=== PATIENT | female | born 1990 | race Asian ===

== ENCOUNTER 2017-10-24 23:21 | Observation (INO) | payer SELFPAY ==
[~2017-10-24] VITALS: Ht 162.6 cm; Wt 73.0 kg
== END 2017-10-25 01:20 | disposition home or self-care (01) ==
LOC: L&D 23:21
PROVIDERS: ADMIT Obstetrics & Gynecology; ATTEND Obstetrics & Gynecology
DX: O36.8190 Decreased fetal movements, unspecified trimester, not applicable or unspecified (principal); Z3A.00 Weeks of gestation of pregnancy not specified
CPT/HCPCS: 99281; G0378

== ENCOUNTER 2018-01-08 23:36 | Observation (INO) | payer SELFPAY ==
[~2018-01-08] VITALS: Ht 162.6 cm; Wt 74.4 kg
[2018-01-09] MEDS ORDERED: PNV1TABL76 PO (01:10)
== END 2018-01-09 01:30 | disposition home or self-care (01) ==
LOC: L&D 23:36
PROVIDERS: ADMIT Obstetrics & Gynecology; ATTEND Obstetrics & Gynecology
DX: O62.9 Abnormality of forces of labor, unspecified (principal); O24.419 Gestational diabetes mellitus in pregnancy, unspecified control; Z3A.39 39 weeks gestation of pregnancy
CPT/HCPCS: 82962; 99281; G0378

== ENCOUNTER 2018-01-12 21:40 | Observation (INO) | payer SELFPAY ==
[~2018-01-12 21:40] MED LIST: PNV1TABL76 PO
== END 2018-01-13 | disposition home or self-care (01) ==
LOC: L&D 21:40
PROVIDERS: ADMIT Specialist; ATTEND Specialist
DX: O36.8130 Decreased fetal movements, third trimester, not applicable or unspecified (principal); O62.9 Abnormality of forces of labor, unspecified; O48.0 Post-term pregnancy; Z3A.40 40 weeks gestation of pregnancy
CPT/HCPCS: G0378 ×2

== ENCOUNTER 2018-01-13 06:18 | Inpatient (IN) | payer SELFPAY ==
[~2018-01-13] VITALS: Ht 162.6 cm; Wt 74.8 kg
[2018-01-13] MEDS ORDERED: DEXT 5%/LR + PITOCIN 20UNITS/L 1,000 ML IV SCH (06:58)
[2018-01-13] MEDS ORDERED: LIDOCAINE HCL 1% 20ML VIAL (Pyxis) INJ INFIL SCH (07:00)
[2018-01-13] MEDS ORDERED: METHYLERGONOVINE MALEATE 0.2 MG/ML IM PRN (07:00)
[2018-01-13] MEDS ORDERED: BUTORPHANOL TARTRATE 2 MG/ML VIAL IV PRN (07:00)
[2018-01-13] MEDS ORDERED: CARBOPROST TROMETHAMINE 250 MCG/ML AMPUL IM PRN (07:00)
[2018-01-13] MEDS ORDERED: NALOXONE HCL 0.4 MG/ML 1ML VIAL IM PRN (07:00)
[2018-01-13] MEDS: LACTATED RINGERS 1,000 ML IV SCH ×2 (08:21→13:44)
[2018-01-13] MEDS: MISOPROSTOL 100MCG TABLET VG PRN ×3 (08:48→18:29)
[2018-01-13 09:08] LABS: BASOPHILS % 0.3 % (0.0-2.0); EOSINOPHILS % 0.8 % (0.0-5.0); HEMATOCRIT. 38.6 % (36.0-48.0); HEMOGLOBIN. 12.9 g/dL (12.0-16.0); LYMPHOCYTES % 23.9 % (20.0-50.0); MEAN CORPUSCULAR HEMOGLOBIN 28.4 pg (28.0-32.0); MEAN PLATELET VOLUME 9.8 fl (7.4-10.4); MONOCYTES % 7.2 % (2.0-8.0); NEUTROPHILS % 67.8 % (40.0-76.0); PLATELET 212 x1000/uL (130-400); RED BLOOD CELL COUNT 4.54 mill/uL (4.2-5.4); RED CELL DISTRIBUTION WIDTH 15.6 % (11.6-14.6)
[2018-01-13 09:13] LABS: INR 0.9; PROTHROMBIN TIME 9.4 sec (9.1-11.1)
[2018-01-13 12:59] LABS: HEPATITIS B SURFACE ANTIGEN NEGATIVE
[2018-01-13 14:15] LABS: CLARITY URINE CLEAR (CLEAR); COLOR URINE YELLOW (YELLOW); KETONES URINE NEGATIVE (NEGATIVE); LEUKOCYTE ESTERASE URINE NEGATIVE (NEGATIVE); NITRITE URINE NEGATIVE (NEGATIVE); OCCULT BLOOD URINE NEGATIVE (NEGATIVE); PROTEIN URINE NEGATIVE (NEGATIVE); SPECIFIC GRAVITY URINE 1.016 (1.005-1.030); UROBILINOGEN URINE 0.2 E.U./dL (0.2-1.0)
[2018-01-13 14:19] LABS: RUBELLA IGG > 500.0 IU/mL (4.99-10)
[2018-01-13 14:46] LABS: *AMPHETAMINES SCREEN URINE NEGATIVE (NEGATIVE); *BARBITURATES SCREEN URINE NEGATIVE (NEGATIVE); *BENZODIAZEPINES SCREEN URINE NEGATIVE (NEGATIVE)
[2018-01-13 14:47] LABS: *COCAINE SCREEN URINE NEGATIVE (NEGATIVE); CANNABINOID URINE SCREEN NEGATIVE (NEGATIVE); METHADONE URINE SCREEN NEGATIVE (NEGATIVE); OPIATES URINE SCREEN NEGATIVE (NEGATIVE); PHENCYCLIDINE URINE SCREEN NEGATIVE (NEGATIVE)
[2018-01-14] MEDS: LACTATED RINGERS 1,000 ML IV SCH ×5 (02:05→22:13)
[2018-01-14] MEDS ORDERED: BUPIVACAINE HCL/PF 0.25% (2.5MG/ML) 10ML ONE (02:19)
[2018-01-14] MEDS ORDERED: BUPIVACAINE HCL/NS/PF EPIDURAL 100 ML EP ONE ×2 (02:19→19:19)
[2018-01-14] MEDS ORDERED: FENTANYL CITRATE/PF 50MCG/ML 2ML VIAL ONE ×3 (02:19→19:19)
[2018-01-14] MEDS ORDERED: BUPIVACAINE HCL/NS/PF EPIDURAL 100 ML EP SCH (03:00)
[2018-01-14] MEDS ORDERED: LIDOCAINE HCL/PF 2% 20MG/ML 5 ML/VIAL ONE ×3 (19:20→22:58)
[2018-01-14] MEDS ORDERED: SODIUM CHLORIDE 0.9% 10ML VIAL ONE ×2 (22:01→23:20)
[2018-01-14] MEDS ORDERED: ACETAMINOPHEN 325MG TABLET PO NR (22:09)
[2018-01-14] MEDS ORDERED: BUTORPHANOL TARTRATE 2 MG/ML VIAL IV PRN (22:15)
[2018-01-14] MEDS ORDERED: MIDAZOLAM HCL 2 MG/2 ML VIAL ONE (22:58)
[2018-01-14] MEDS ORDERED: KETAMINE HCL 50 MG/ML 10ML ONE (22:59)
[2018-01-14] MEDS ORDERED: OXYTOCIN 10 UNITS/ML 1ML ONE ×2 (23:09→23:53)
[2018-01-14] MEDS ORDERED: MORPHINE SULFATE/PF 1MG/ML 10ML AMP ONE (23:10)
[2018-01-14] MEDS ORDERED: ONDANSETRON HCL 4MG/2ML VIAL ONE (23:52)
[2018-01-14] MEDS ORDERED: KETOROLAC 60MG/2ML VIAL IM ONE (23:59)
[2018-01-15] VITALS (7 sets, daily range): BP systolic 99–122; BP diastolic 59–80
[2018-01-15] MEDS ORDERED: CEFAZOLIN 2000MG PREMIX 50 ML IV ONE (00:07)
[2018-01-15] MEDS ORDERED: DEXT 5%/LR + PITOCIN 20UNITS/L 1,000 ML IV SCH (00:18)
[2018-01-15] MEDS ORDERED: HEMORRHOIDAL SUPP PR PRN (00:30)
[2018-01-15] MEDS ORDERED: ONDANSETRON HCL 4MG/2ML VIAL IV PRN (00:30)
[2018-01-15] MEDS ORDERED: HYDROMORPHONE HCL/PF 2MG/ML CPJ IM PRN (00:30)
[2018-01-15] MEDS ORDERED: LANOLIN OINT 0.25 GM TUBE TOP PRN (00:30)
[2018-01-15] MEDS ORDERED: NALOXONE HCL 0.4 MG/ML 1ML VIAL IV PRN (00:30)
[2018-01-15] MEDS ORDERED: HYDROCODONE/ACETAMINOPHEN 5/325MG TABLET PO PRN (00:30)
[2018-01-15] MEDS ORDERED: DIPHENHYDRAMINE 50MG/ML VIAL IV PRN (00:30)
[2018-01-15] MEDS ORDERED: ACETAMINOPHEN 325MG TABLET PO PRN (00:30)
[2018-01-15] MEDS ORDERED: DIPHENHYDRAMINE 25MG CAPSULE PO PRN (00:30)
[2018-01-15] MEDS ORDERED: BUTORPHANOL TARTRATE 2 MG/ML VIAL IV PRN (00:30)
[2018-01-15 00:58] LABS: CLARITY URINE TURBID (CLEAR); KETONES URINE 4+ (NEGATIVE); LEUKOCYTE ESTERASE URINE 2+ (NEGATIVE); NITRITE URINE POSITIVE (NEGATIVE); OCCULT BLOOD URINE 3+ (NEGATIVE); PROTEIN URINE 2+ (NEGATIVE); SPECIFIC GRAVITY URINE 1.015 (1.005-1.030)
[2018-01-15 00:59] LABS: HEMATOCRIT. 29.2 % (36.0-48.0); HEMOGLOBIN. 9.7 g/dL (12.0-16.0); MEAN CORPUSCULAR HEMOGLOBIN 28.2 pg (28.0-32.0); MEAN CORPUSCULAR VOLUME 85.3 fL (81.0-99.0); MEAN PLATELET VOLUME 9.8 fl (7.4-10.4); PLATELET 173 x1000/uL (130-400); RED BLOOD CELL COUNT 3.43 mill/uL (4.2-5.4); RED CELL DISTRIBUTION WIDTH 15.6 % (11.6-14.6)
[2018-01-15 01:02] LABS: COLOR URINE BLOODY (YELLOW)
[2018-01-15] MEDS: KETOROLAC 30MG/ML VIAL IV PRN ×3 (01:10→13:11)
[2018-01-15] MEDS ORDERED: GENTAMICIN 120MG PREMIX 100 ML IV SCH (02:00)
[2018-01-15] MEDS: AMPICILLIN 2,000 MG in SODIUM CHLORIDE 0.9% 100 ML IV SCH ×4 (02:24→21:15)
[2018-01-15] MEDS: PRENATAL VIT/FE FUMARATE/FA TABLET PO SCH (08:36)
[2018-01-15] MEDS: SIMETHICONE 80MG TABLET CHEW PO SCH ×4 (08:36→21:03)
[2018-01-15 09:37] LABS: PLATELET ESTIMATE NORMAL
[2018-01-15] MEDS: HYDROCODONE/ACETAMINOPHEN 5/325MG TABLET PO PRN ×3 (09:52→21:01)
[2018-01-15] MEDS: GENTAMICIN 100MG PREMIX 50 ML IV SCH ×2 (13:00→21:56)
[2018-01-15] MEDS: DOCUSATE SODIUM 100MG CAPSULE PO SCH (20:58)
[2018-01-16] MEDS: AMPICILLIN 2,000 MG in SODIUM CHLORIDE 0.9% 100 ML IV SCH ×4 (03:02→21:00)
[2018-01-16] MEDS: IBUPROFEN 400MG TABLET PO PRN ×3 (03:15→15:08)
[2018-01-16] MEDS: BISACODYL 10MG SUPP PR PRN ×2 (03:21→10:11)
[2018-01-16] MEDS: GENTAMICIN 100MG PREMIX 50 ML IV SCH ×3 (05:55→23:12)
[2018-01-16 06:00] VITALS: BP 112/71
[2018-01-16 08:30] VITALS: BP 114/77
[2018-01-16] MEDS: SIMETHICONE 80MG TABLET CHEW PO SCH ×4 (08:38→21:10)
[2018-01-16] MEDS: PRENATAL VIT/FE FUMARATE/FA TABLET PO SCH (08:39)
[2018-01-16] MEDS: FERROUS SULFATE 325MG TABLET PO SCH ×2 (13:00→18:15)
[2018-01-16 16:01] VITALS: BP 124/81
[2018-01-16 19:30] VITALS: BP 123/81
[2018-01-16] MEDS: DOCUSATE SODIUM 100MG CAPSULE PO SCH (21:10)
[2018-01-16] MEDS: OXYCODONE HCL/ACETAMINOPHEN 5/325MG TABLET PO PRN (21:13)
[2018-01-16 23:13] VITALS: BP 118/75
[2018-01-17 02:32] VITALS: BP 118/78
[2018-01-17] MEDS: OXYCODONE HCL/ACETAMINOPHEN 5/325MG TABLET PO PRN ×2 (02:35→08:28)
[2018-01-17] MEDS: AMPICILLIN 2,000 MG in SODIUM CHLORIDE 0.9% 100 ML IV SCH ×2 (02:36→08:29)
[2018-01-17] MEDS: GENTAMICIN 100MG PREMIX 50 ML IV SCH ×2 (07:00→08:17)
[2018-01-17 07:03] LABS: BASOPHILS % 0.3 % (0.0-2.0); EOSINOPHILS % 0.3 % (0.0-5.0); HEMATOCRIT. 23.9 % (36.0-48.0); HEMOGLOBIN. 7.9 g/dL (12.0-16.0); LYMPHOCYTES % 10.9 % (20.0-50.0); MEAN CORPUSCULAR HEMOGLOBIN 28.6 pg (28.0-32.0); MEAN CORPUSCULAR VOLUME 86.1 fL (81.0-99.0); MONOCYTES % 4.8 % (2.0-8.0); NEUTROPHILS % 83.7 % (40.0-76.0); PLATELET 234 x1000/uL (130-400); RED BLOOD CELL COUNT 2.77 mill/uL (4.2-5.4); RED CELL DISTRIBUTION WIDTH 15.9 % (11.6-14.6)
[2018-01-17 07:12] LABS: CHLORIDE 105 mEq/L (98-107)
[2018-01-17 07:30] LABS: GENTAMICIN RANDOM 1.2 ug/mL
[2018-01-17] MEDS: SIMETHICONE 80MG TABLET CHEW PO SCH ×2 (08:16→14:23)
[2018-01-17] MEDS: FERROUS SULFATE 325MG TABLET PO SCH ×2 (08:16→14:23)
[2018-01-17] MEDS: PRENATAL VIT/FE FUMARATE/FA TABLET PO SCH (08:16)
[2018-01-17] MEDS: BISACODYL 10MG SUPP PR PRN (08:18)
[2018-01-17] MEDS: IBUPROFEN 400MG TABLET PO PRN ×2 (08:21→14:23)
[2018-01-17 09:00] VITALS: BP 123/77
[2018-01-17] MEDS ORDERED: GENTAMICIN 120MG PREMIX 100 ML IV SCH (18:00)
== END 2018-01-17 15:35 | disposition home or self-care (01) | DRG 540 ==
LOC: OBSVTOIN 06:18 → L&D 06:18 → 7EST PP/OB 01-15 02:10
PROVIDERS: ADMIT Specialist; ATTEND Specialist
PROC: 10D00Z1 Extraction of Products of Conception, Low, Open Approach (ICD-10-PCS; principal; 2018-01-15)
DX: O48.0 Post-term pregnancy (principal); O86.20 Urinary tract infection following delivery, unspecified; O75.81 Maternal exhaustion complicating labor and delivery; O24.420 Gestational diabetes mellitus in childbirth, diet controlled; O76 Abnormality in fetal heart rate and rhythm complicating labor and delivery; O90.81 Anemia of the puerperium; D64.9 Anemia, unspecified; O66.5 Attempted application of vacuum extractor and forceps; Z3A.40 40 weeks gestation of pregnancy; Z37.0 Single live birth
CPT/HCPCS: 36415; 80048; 80170; 80305; 81003; 85025; 85610; 85730; 86592; 86703; 86762; 86850; 86900; 87040; 87070; 87077; 87086; 87186; 87205; 87340; 88307; A4216; G0378; J0290; J0595; J0690; J1580; J1885; J2250; J2274; J2405; J2590; J3010; J3490; J7040; J7050; J7120; A4315